=== PATIENT | male | born 2000 | race Caucasian/White ===

== ENCOUNTER 2020-02-29 19:11 | Emergency (ER) | payer OTHER, SELFPAY ==
[2020-02-29 19:12] VITALS: BP 129/85; PULSE 82; RESP 16; TEMP 36.7; BMI 26.8
--- NOTE | 2020-02-29 19:20 | RAD_ITS ---
STUDY: X-RAY - RIGHT FOOT CLINICAL: Male, 19 years old. Rolled foot last night, dorsal pain. TECHNIQUE: 3 view(s) of the foot. COMPARISON: None. FINDINGS: Normal talus, calcaneus, and tarsal bones. Bone island of the calcaneus. Normal visualized subtalar, talonavicular, calcaneocuboid, tarsal and tarsometatarsal articulations. Normal metatarsi. Normal metatarsophalangeal joint of the great toe. Normal tibial and fibular sesamoid bones. Normal interphalangeal joint of the great toe. Normal phalanges of the great toe. Normal second through fifth metatarsophalangeal joints. Normal interphalangeal joints and phalanges of the lesser toes. The soft tissue structures are unremarkable. There is no demonstrated fracture. RAD/Foot min 3 Views IMPRESSION: Normal x-ray examination of the foot. Negative for fracture or dislocation. Electronically Signed: Adenike Whyte MD at 19:46 EST , Service support ,
--- NOTE | 2020-02-29 19:57 | ED.VISSUMM ---
- ER Visit Summary Date of Service: 02/29/20 Chief Complaint: Right foot pain History of Present Illness: The patient is a 19 M who is an [employer] student. He does not have a local primary care physician. He reports that yesterday he jumped and had a forced inversion of his right ankle. He denies ankle pain. However, he states he has sharp foot pain that is 9 out of 10 with walking and is pain-free at rest. He denies any other injuries or complaints. Physical Examination: Vitals: Stable. Afebrile. Neck: No vertebral tenderness. Full ROM without difficulty. Cleared by NEXUS criteria. Back: No vertebral tenderness. General: A&O x 3. NAD. Cardiovascular exam: Regular rate and rhythm, no murmur, rub or gallop. Respiratory exam: Chest nontender. No crepitus. Clear to auscultation bilaterally. No wheezes or stridor. Abdominal exam: Soft, nontender, nondistended, normal bowel sounds. No pain in RUQ or LUQ specifically. No peritoneal signs. Extremity: Moderate tenderness palpation over the right midfoot on the dorsal surface. There is mild soft tissue swelling. Is a 2+ dorsalis pedis pulse. He has normal sensation light touch distally. There is no pain over the medial or lateral malleoli. No pain over the base the fifth metatarsal or the proximal fibula. Test Results: Clinical Impression(s) from Imaging Studies Foot X-Ray 02/29/20 19:20 IMPRESSION: Normal x-ray examination of the foot. Negative for fracture or dislocation. Electronically Signed: Adenike Whyte MD at 19:46 EST , Service support , Emergency Department Course and Treatment: Patient refused pain medications. He is resting comfortably. Treatment Plan: Patient did not want crutches. He was placed in a postop shoe. He will be discharged instructions to follow-up with Dr. Cronin in 1 week if not improving. Return to the emergency department for any worsening symptoms. Disposition: To home in improved and stable condition. Impression: 1. Right foot sprain. This note was generated with [employer] software. It may contain incorrect words, spelling, and punctuation that were not noted in review of the chart prior to signing ED Disposition - Plan for ED Patient: Instructions: ED Sprain Foot Referrals: Fer Cronin DPM [STAFF PHYSICIAN] - 1 Week if not improving
== END 2020-02-29 20:06 | disposition home or self-care (01) ==
LOC: ED 20:01
PROVIDERS: Emergency Provider Emergency Medicine
DX: S93.601A Unspecified sprain of right foot, initial encounter (principal); X58.XXXA Exposure to other specified factors, initial encounter
CPT/HCPCS: 73630; 99283